=== PATIENT | female | born 1985 | race Caucasian/White ===

== ENCOUNTER 2017-07-05 09:34 | Emergency (ER) | payer OTHER ==
[2017-07-05 09:40] VITALS: BP 129/67; PULSE 92; TEMP 98.6; BMI 25.6
--- NOTE | 2017-07-05 10:00 | PDOC ---
History of Present Illness - General Chief Complaint: Urinary Problem Stated Complaint: flank pain Time Seen by Provider: 07/05/17 09:59 History Source: Patient Exam Limitations: No Limitations - History of Present Illness Travel History: No Initial Comments: 07/05/17 10:59 Patient here with complaints of painful urination times one week. States tried to get appointment with her PMD but didn't have any available for over 3 weeks. States onset was approximately week ago and is progressively gotten worse. Has tried lots of fluids with 0 result. Denies fever and chills although feels malacic. Denies nausea vomiting diarrhea or constipation. No vaginal drainage or discharge Timing/Duration: reports: getting worse Quality: reports: moderate Abdominal Pain Onset Location: reports: suprapubic Pain Radiation: reports: no radiation Past History - Travel Traveled outside of the country in the last 30 days: No Close contact w/someone who was outside of country & ill: No - Past Medical History Allergies/Adverse Reactions: Allergies Allergy/AdvReac Type Severity Reaction Status Date / Time No Known Allergies Allergy Verified 07/05/17 09:40 Home Medications: Ambulatory Orders Acetaminophen [Tylenol] 650 mg PO Q4H PRN 03/01/13 Ibuprofen [Motrin] 400 mg PO QID PRN 03/01/13 Phenazopyridine HCl [Pyridium -] 200 mg PO Q8H PRN #12 tablet 07/05/17 Sulfamethoxazole/Trimethoprim [Bactrim *Ds*] 1 each PO BID #10 tablet 07/05/17 Other medical history: denies - Surgical History Abdominal Surgery: Yes (???) - Suicide/Smoking/Psychosocial Hx Smoking Status: No Smoking History: Never smoked Number of Cigarettes Smoked Daily: 0 Hx Alcohol Use: No Drug/Substance Use Hx: No Substance Use Type: None Review of Systems - Review of Systems Able to Perform ROS?: Yes Is the patient limited Irish proficient: Yes Constitutional: Yes: Symptoms Reported, See HPI, Malaise. No: Fever HEENTM: No: Symptoms Reported Respiratory: No: Symptoms reported Musculoskeletal: Yes: Symptoms Reported, See HPI, Back Pain (low back aching ) Integumentary: Yes: Symptoms Reported All Other Systems: Reviewed and Negative *Physical Exam - Vital Signs Last Vital Signs Temp Pulse Resp BP Pulse Ox 98.6 F 92 H 18 129/67 100 07/05/17 09:38 10/07/17 09:38 07/05/17 09:38 07/05/17 09:38 07/05/17 09:38 - Physical Exam General Appearance: Yes: Nourished, Appropriately Dressed HEENT: positive: ELKIN, Normal ENT Inspection, TMs Normal, Pharynx Normal Neck: positive: Supple. negative: Tender Respiratory/Chest: positive: Lungs Clear Gastrointestinal/Abdominal: positive: Normal Bowel Sounds, Tender (suprapubic tenderness, no rebound or guarding), Soft. negative: Distended, Guarding, Rebound Musculoskeletal: positive: Normal Inspection. negative: CVA Tenderness Extremity: positive: Normal Capillary Refill, Normal Inspection, Normal Range of Motion Integumentary: positive: Normal Color, Dry, Warm Neurologic: positive: bulk mail clerk II-XII NML intact, Fully Oriented, Alert, Normal Mood/ Affect, Normal Response, Motor Strength 5/5 Progress Note - Progress Note Progress Note: Urinary tract infection, will treat with Bactrim and Pyridium *DC/Admit/Observation/Transfer Diagnosis at time of Disposition: UTI (urinary tract infection) Qualifiers: Urinary tract infection type: acute cystitis Hematuria presence: with hematuria Qualified Code(s): N30.01 - Acute cystitis with hematuria - Discharge Dispostion Disposition: HOME Condition at time of disposition: Stable Admit: No - Prescriptions Prescriptions: Sulfamethoxazole/Trimethoprim [Bactrim *Ds*] 1 each PO BID #10 tablet Phenazopyridine HCl [Pyridium -] 200 mg PO Q8H PRN #12 tablet PRN Reason: painful urination - Patient Instructions Printed Discharge Instructions: DI for Urinary Tract Infection (UTI) Additional Instructions: Rest, drink lots of fluids: Teas, water, soups Avoid contact with others until fevers and symptoms resolved Lots of handwashing and good hygiene Continue [id number] medications for symptomatic relief Tylenol or Motrin for fever and pain Continue all of antibiotics until completed Pyridium, is medication to help anesthetize urethra so it does not burn to urinate. He may take 1 of these tablets after each urination up to 4 times a day until pain resolves . Remember will make tears and mucous membranes bright yellow, will make urine bright yellow Followup with private physician in one week for repeat urinalysis/reevaluation Return to emergency department for worsened symptoms, fevers, dehydration - Post Discharge Activity Forms/Work/School Notes: Back to Work
[2017-07-05 10:45] LABS: URINE APPEARANCE CLOUDY; URINE BILIRUBIN NEGATIVE (NEGATIVE); URINE BLOOD 2+ (NEGATIVE); URINE COLOR YELLOW; URINE GLUCOSE (UA) NEGATIVE (NEGATIVE); URINE KETONE NEGATIVE (NEGATIVE); URINE NITRITE NEGATIVE (NEGATIVE); URINE UROBILINOGEN NEGATIVE mg/dL (0.2-1.0)
[2017-07-05 10:46] LABS: URINE PROTEIN 1+ (NEGATIVE)
[2017-07-05] MEDS ORDERED: SULFAMETHOXAZOLE/TRIMETHOPRIM 800MG/160MG D.S. TABLET PO ONE (11:00)
[2017-07-05] MEDS ORDERED: PHENAZOPYRIDINE HCL 100 MG TABLET (FP) PO ONE (11:05)
[2017-07-05] MEDS ORDERED: SULFAMETHOXAZOLE/TRIMETHOPRIM 800MG/160MG D.S. TABLET ONE (11:07)
[2017-07-05] MEDS ORDERED: PHENAZOPYRIDINE HCL 100 MG TABLET (FP) ONE (11:07)
[2017-07-05 12:20] LABS: URINE BACTERIA RARE /hpf (NONE SEEN); URINE MUCUS RARE; URINE RBC 2 /hpf (0-3); URINE WBC 1269 /hpf (3-5)
[2017-07-05 16:58] LABS: URINE LEUK ESTERASE 3+ (NEGATIVE)
--- NOTE | 2017-07-07 11:07 | PDOC ---
Patient Follow-up (Call Back) - Post ED Follow - Up Condition at time of discharge: Stable Disposition at time of original discharge: HOME Reason for Call Back: Abnwl. Microbiology (unable to reach pt to see how she is doing, no mailbox set up to leave a message . will attempt a second time.) - Disposition Rx Needed: No (pt on bactrim whis is sensitive to ESBL) Additional Instructions/Notes: spoke with pt she is feeling much better. no fever no vomiting no pain, pt is taking her antibioitcs.
== END 2017-07-05 11:23 | disposition home or self-care (01) ==
LOC: JERFT 09:34
DX: N30.01 Acute cystitis with hematuria (principal)
CPT/HCPCS: 81003; 81015; 84703; 87086; 87186; 99281-25

== ENCOUNTER 2019-08-24 07:53 | Emergency (ER) | payer OTHER ==
[2019-08-24 08:12] VITALS: BP 124/77; PULSE 109; TEMP 98.3; BMI 28.3
[2019-08-24] MEDS ORDERED: IBUPROFEN 600 MG TABLET (FP) PO ONE ×2 (08:15→08:16)
--- NOTE | 2019-08-24 08:17 | PDOC ---
History of Present Illness - General Chief Complaint: Edema Stated Complaint: RING STUCK ON INDEX FINGER Time Seen by Provider: 08/24/19 08:15 History Source: Patient Exam Limitations: Clinical Condition - History of Present Illness Initial Comments: 08/24/19 08:24 Patient with no significant past medical history presented with complaint of swelling to right index finger with pain due to finger ring stuck on finger since yesterday. Patient reports trying multiple attempts of removing her ring but would not come out. Denies numbness or tingling sensation. Denies any other symptoms Is this a multiple visit Asthma Patient?: No Timing/Duration: 24 hours Past History - Past Medical History Allergies/Adverse Reactions: Allergies Allergy/AdvReac Type Severity Reaction Status Date / Time No Known Allergies Allergy Verified 08/24/19 08:15 COPD: No - Surgical History Abdominal Surgery: Yes (???) - Psycho Social/Smoking Cessation Hx Smoking Status: No Smoking History: Never smoked Number of Cigarettes Smoked Daily: 0 Hx Alcohol Use: No Drug/Substance Use Hx: No Substance Use Type: None Review of Systems - Review of Systems Able to Perform ROS?: Yes Is the patient limited Chinese proficient: No Constitutional: No: Malaise, Weakness HEENTM: No: Symptoms Reported Respiratory: No: Symptoms reported Cardiac (ROS): No: Symptoms Reported ABD/GI: No: Symptoms Reported Musculoskeletal: Yes: Symptoms Reported, See HPI, Joint Swelling (proximal right index finger swelling from ring stuck on finger), Muscle Pain (pain to right index finger) Integumentary: Yes: Symptoms Reported, See HPI, Other (swelling to right index finger) Neurological: No: Symptoms reported, Numbness, Paresthesia, Tingling All Other Systems: Reviewed and Negative *Physical Exam - Vital Signs Last Vital Signs Temp Pulse Resp BP Pulse Ox 98.3 F 109 H 16 124/77 99 08/24/19 08:10 08/24/19 08:10 08/24/19 08:10 08/24/19 08:10 08/24/19 08:10 - Physical Exam General Appearance: Yes: Nourished, Appropriately Dressed. No: Apparent Distress HEENT: positive: Normal ENT Inspection Respiratory/Chest: positive: Normal Breath Sounds. negative: Respiratory Distress, Accessory Muscle Use Musculoskeletal: positive: Normal Inspection, Other (mild tenderness over swelling to right index finger. FROM of finger. 5/5 of right index finger) Extremity: positive: Normal Capillary Refill, Normal Inspection, Normal Range of Motion, Swelling (mild swelling to proximal aspect of right index finger surrounding stuck ring on finger) Integumentary: positive: Normal Color Neurologic: positive: Fully Oriented, Alert, Normal Mood/Affect, Normal Response , Motor Strength 5/5 Medical Decision Making - Medical Decision Making 08/24/19 08:25 Patient with no significant past medical history presented with complaint of swelling to right index finger with pain due to finger ring stuck on finger since yesterday. Patient reports trying multiple attempts of removing her ring but would not come out. Denies numbness or tingling sensation. Denies any other symptoms Exam significant for mild swelling to proximal aspect of right index finger with mild pain surrounding finger ring. Ring cut with ring cutter without complication. Patient reported immediate relief of symptoms. Ibuprofen 600 mg p.o. ordered for pain. Patient stable for discharge Discharge - Discharge Information Problems reviewed: Yes Clinical Impression/Diagnosis: Swelling of right index finger Condition: Stable Disposition: HOME - Admission No - Follow up/Referral - Patient Discharge Instructions Additional Instructions: Soak finger in warm water 2-3 times as needed for swelling. Take Motrin as needed for pain. Apply hot compress to finger as needed for swelling. Follow- up with PCP as needed - Post Discharge Activity
== END 2019-08-24 08:20 | disposition home or self-care (01) ==
LOC: JERFT 07:53 → JER 07:53 → JERFT 08:20
DX: S60.440A External constriction of right index finger, initial encounter (principal); W49.04XA Ring or other jewelry causing external constriction, initial encounter; Y93.89 Activity, other specified; Y92.018 Other place in single-family (private) house as the place of occurrence of the external cause; Y99.8 Other external cause status
CPT/HCPCS: 99281-25